=== PATIENT | female | born 1985 | race Caucasian/White ===

== ENCOUNTER 2019-05-04 16:58 | Emergency (ER) | payer BC ==
[2019-05-04 17:37] VITALS: BP 135/91
--- NOTE | 2019-05-04 17:50 | UC ---
UC General HPI - HPI Summary HPI Summary: 33-year-old woman coming in with a chief complaint of bodyaches neck pain headache. For approximately a week patient's been having some body aches and feeling slightly ill. Yesterday she started with neck pain and a headache. The neck pain is worse with any attempted movement of the neck. 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 The headache is circumferential. Denies any runny nose cough chest congestion abdominal pain dysuria diarrhea. She does get bitten by ticks. No known bull's-eye rash. - History of Current Complaint Chief Complaint: UCGeneralIllness Stated Complaint: NECK STIFFNESS Time Seen by Provider: 05/04/19 17:40 Hx Last Menstrual Period: IUD Pain Intensity: 5 - Allergy/Home Medications Allergies/Adverse Reactions: Allergies Allergy/AdvReac Type Severity Reaction Status Date / Time No Known Allergies Allergy Verified 05/04/19 17:38 PMH/Surg Hx/FS Hx/Imm Hx Previously Healthy: Yes - Family History Known Family History: Positive: Non-Contributory - Social History Alcohol Use: Weekly Substance Use Type: None Smoking Status (MU): Never Smoked Tobacco Review of Systems All Other Systems Reviewed And Are Negative: Yes Constitutional: Positive: Fever - 100 AT TRIAGE, Chills, Other - SEE HPI Skin: Positive: Negative Eyes: Positive: Negative ENT: Positive: Negative Respiratory: Positive: Negative Cardiovascular: Positive: Negative Gastrointestinal: Positive: Negative Genitourinary: Positive: Negative Motor: Positive: Other - SEE HPI Neurovascular: Positive: Negative Musculoskeletal: Positive: Myalgia Neurological: Positive: Headache Psychological: Positive: Negative Is Patient Immunocompromised?: No Physical Exam Triage Information Reviewed: Yes Appearance: Well-Nourished, Ill-Appearing - MILD, Pain Distress - MILD WITH ROM OF NECK Vital Signs: Initial Vital Signs Temp 100 F 05/04/19 17:31 Pulse 107 05/04/19 17:31 Resp 18 05/04/19 17:31 BP 135/91 05/04/19 17:31 Pulse Ox 100 05/04/19 17:31 Vital Signs Reviewed: Yes Eye Exam: Normal Eyes: Positive: Conjunctiva Clear ENT: Positive: Pharynx normal, TMs normal Neck: Positive: Nuchal Rigidity, Tenderness @ - MIDLINE Respiratory: Positive: Lungs clear, Normal breath sounds, No respiratory distress Cardiovascular: Positive: Tachycardia Abdomen Description: Negative: CVA Tenderness (R), CVA Tenderness (L) Musculoskeletal: Positive: Strength Intact Neurological: Positive: Alert Psychological: Positive: Age Appropriate Behavior Skin Exam: Normal Course/Dx - Course Course Of Treatment: Due to the possibility of meningitis I recommended further evaluation emergency Department patient declined and is transported be going by POV. - Diagnoses Provider Diagnosis: Neck stiffness, Fever Discharge ED - Sign-Out/Discharge Documenting (check all that apply): Patient Departure All imaging exams completed and their final reports reviewed: No Studies - Discharge Plan Condition: Stable Disposition: HOME-RECOMMEND TO ED Referrals: [facility] [Outside] Additional Instructions: GO DIRECTLY TO THE EMERGENCY DEPARTMENT FOR FURTHER EVALUATION. - Billing Disposition and Condition Condition: STABLE Disposition: Home-Recommend to ED
== END 2019-05-04 17:56 | disposition home health service (06) ==
LOC: UCEAST 16:58
DX: M54.2 Cervicalgia (principal); R50.9 Fever, unspecified
CPT/HCPCS: 99202; G0463

== ENCOUNTER 2019-05-04 18:14 | Emergency (ER) | payer BC ==
[2019-05-04] MEDS ORDERED: Lidocaine 2% EPI 1:200000 MPF* 10 ML VIAL INJ ONE (20:42)
--- NOTE | 2019-05-04 20:46 | ED ---
Neck Pain - HPI Summary HPI Summary: The patient is a 33 y/o F presenting to [facility] with a chief complaint of increasing posterior neck pain in the last week. She reports that when her symptoms began, she had generalized fatigue with myalgia and arthralgia, but then she developed some disorientation with a sensation of unsteady gait but no confusion. The pain worsened in the shoulders and has been persistent in the posterior neck and occipital area, which is aggravated with movement of the neck , causing her to have a light flickering and crunchy description of the pain, as well as a sloshy and pressure-like headache. She additionally c/o a fever ( noted today at Urgent Care) and body tremors without chills. She denies any CP, SOB, cough, abd pain, nausea, vomiting, diarrhea, or back pain. Currently, her symptoms are rated 4/10 in severity. No treatment [employer]. 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 LNMP: IUD. PMHx: none. Nonsmoker, weekly EtOH, no substance use. Medications reviewed. Allergies noted. - History of Current Complaint Chief Complaint: EDNeckComplaint Stated Complaint: FEVER AND STIFF NECK PER PT Time Seen by Provider: 05/04/19 20:31 Hx Obtained From: Patient Hx Last Menstrual Period: IUD Onset/Duration Of Injury/Symptoms: Days - one week Timing: Lasting Days Onset/Duration: Gradual Onset, Still Present Severity Initially: Mild Severity Currently: Moderate Pain Intensity: 4 Pain Scale Used: 0-10 Numeric Location: Discrete At: - posterior neck and occiput Character: Other: - "crunchy" Aggravating Factors: Movement - of neck Alleviating Factors: Position - rest of neck Associated Signs & Symptoms: Positive: Fever, Headache - "sloshy", pressure - Allergies/Home Medications Allergies/Adverse Reactions: Allergies Allergy/AdvReac Type Severity Reaction Status Date / Time No Known Allergies Allergy Verified 05/04/19 18:34 PMH/Surg Hx/FS Hx/Imm Hx Endocrine/Hematology History: Denies: Hx Diabetes Respiratory History: Denies: Hx Asthma Sensory History: Denies: Hx Legally Blind, Hx Deafness Opthamlomology History: Denies: Hx Legally Blind EENT History: Denies: Hx Deafness - Surgical History Surgical History: None Surgery Procedure, Year, and Place: none Infectious Disease History: No Infectious Disease History: Denies: Traveled Outside the [place] in Last 30 Days - Family History Known Family History: Negative: Hypertension, Diabetes - Social History Alcohol Use: Weekly Hx Substance Use: No Substance Use Type: Reports: None Hx Tobacco Use: No Smoking Status (MU): Never Smoked Tobacco Review of Systems Positive: Fever, Fatigue, Other - body tremors. Negative: Chills Positive: Blurred Vision Negative: Chest Pain Negative: Shortness Of Breath Negative: Abdominal Pain, Vomiting, Diarrhea, Nausea Positive: Arthralgia, Myalgia, Other - Positive: bialteral shoulder pain, posterior neck and occipital pain. Negative: back pain. Negative: Rash Neurological: Other - disorientation - unsteady gait Positive: Headache - pressure, "sloshy" All Other Systems Reviewed And Are Negative: Yes Physical Exam - Summary Physical Exam Summary: Appearance: Well-appearing, Well-nourished, lying in bed comfortably Skin: Warm, dry, no obvious rash Eyes: sclera anicteric, no conjunctival pallor ENT: mucous membranes moist, pharynx appears normal Neck: Supple, Pain with ROM with flexion or rotation, Consistent with mild meningismus Respiratory: Clear to auscultation, no signs of respiratory distress Cardiovascular: Normal S1, S2. No murmurs. Normal distal pulses in tibial and radial bilaterally. Abdomen: Soft, nontender, normal active bowel sounds present Musculoskeletal: Normal, Strength/ROM Intact Neurological: A&Ox3, awake and alert, mentation is normal, speech is fluent and appropriate Psychiatric: affect is normal, does not appear anxious or depressed Triage Information Reviewed: Yes Vital Signs On Initial Exam: Initial Vitals Temp Pulse Resp BP Pulse Ox 99.7 F 96 16 159/89 100 05/04/19 18:28 05/04/19 18:28 05/04/19 18:28 05/04/19 18:28 05/04/19 18:28 Vital Signs Reviewed: Yes Procedures - Lumbar Puncture L4-L5 interspace Procedural Sedation: Local anesthetic 2% lido with epi injected while pt in sitting position. Position: Sitting Aseptic Technique: Local Anesthesia Anesthesia Used: 2.0% Lido - with epineprhine Spinal Needle Used: 22 Gauge Lumbar Puncture Note: Puncture performed at the L4-L5 interspace. Pt tolerated procedure well. Diagnostics - Vital Signs Vital Signs Temp Pulse Resp BP Pulse Ox 05/04/19 18:28 99.7 F 96 16 159/89 100 - Laboratory Result Diagrams: 05/04/19 21:21 05/04/19 21:21 Lab Statement: Any lab studies that have been ordered have been reviewed, and results considered in the medical decision making process. - Radiology CXR Radiology Interpretation Completed By: Radiologist Summary of Radiographic Findings: No acute process. ED physician has interpreted this report. Pending official report. Re-Evaluation - Re-Evaluation First Eval Re-Evaluation Time: 22:20 Change: Unchanged Comment: We discussed all results and discharge plan. Neck Course/Dx - Course Course Of Treatment: Pt is a 33 y/o F with cc of increasing pain in the posterior neck and occiput radiating from the shoulders without back pain but accompanied by fever, pain with ROM of neck, sloshy headache, and body tremors , but without any chills, CP, SOB, cough, abd pain, nausea, vomiting, or diarrhea. Upon physical exam, the pt exhibits pain in the neck with ROM including flexion or rotation, which is consistent with mild meningismus. Blood work reveals MCH of 32, INR of 1.11, BUN of 5, glucose of 104, and total bilirubin of 1.30, but is otherwise unremarkable. UA obtained and reveals 2+ protein, trace ketones, and presence of squamous epithelial cells. Lumbar puncture performed (see procedure note). CSF results reveal colorless and clear fluid with 0 WBCs, 54 RBCs, 57 glucose, and 55 total protein. Chest x-ray, per my interpretation, is negative. We discussed all results and plan for discharge home. She understands and agrees with this plan. Dx is viral syndrome. - Diagnoses Provider Diagnoses: Viral syndrome Discharge ED - Sign-Out/Discharge Documenting (check all that apply): Patient Departure - Patient will be discharged home. Patient Received Moderate/Deep Sedation with Procedure: No - Discharge Plan Condition: Good Disposition: HOME Patient Education Materials: Viral Syndrome (ED) Referrals: [facility] [Outside] - 3 Days (if not improving) - Billing Disposition and Condition Condition: GOOD Disposition: Home - Attestation Statements Document Initiated by Scribe: Yes Documenting Scribe: Toyin Wheeler Provider For Whom Scribe is Documenting (Include Credential): MD Meche Gillibjessy Attestation: I, Toyin Wheeler, scribed for Dr. Steven Membreno MD on 05/08/19 at 1849. Scribe Documentation Reviewed: Yes Provider Attestation: The documentation as recorded by the mecheibe, Toyin Wheeler accurately reflects the service I personally performed and the decisions made by me, Dr. Steven Membreno MD Status of Scrshawne Document: Viewed
[2019-05-04] MEDS ORDERED: Lidocaine 2% w/ EPI 1:200,000* 20 ML SDV VIAL INJ ONE (20:50)
[2019-05-04 21:17] LABS: Body Fluid Source Cerebral Spinal
[2019-05-04 21:30] LABS: ABS Lymphocytes 1.8 10^3/ul (1.0-4.8); ABS Monocytes 0.5 10^3/ul (0-0.8); ABS Neutrophils 5.1 10^3/ul (1.5-7.7); Eosinophil % 0.3 %; Hematocrit 42 % (35-47); Hemoglobin 14.6 g/dL (12.0-16.0); Lymphocyte % 24.3 %; Mean Corpuscular HGB Conc 35 g/dL (31-36); Mean Corpuscular Hemoglobin 32 pg (27-31); Mean Corpuscular Volume 91 fL (80-97); Mean Platelet Volume 8.1 fL (7.4-10.4); Nucleated Red Blood Cells % 0.1; Platelet Count 249 10^3/uL (150-450); Red Blood Count 4.64 10^6 /uL (3.70-4.87); Red Cell Distribution Width 12 % (10-15); White Blood Count 7.6 10^3/uL (3.5-10.8)
[2019-05-04 21:31] LABS: CSF Glucose 57 mg/dL (40-70)
[2019-05-04 21:35] LABS: INR 1.11 (0.82-1.09)
[2019-05-04 21:57] LABS: ALT 12 U/L (7-52); AST 18 U/L (13-39); Albumin/Globulin Ratio 1.9 (1-3); Alkaline Phosphatase 51 U/L (34-104); Anion Gap 8 mmol/L (2-11); BUN/Creatinine Ratio 7.4 (8-20); Blood Urea Nitrogen 5 mg/dL (6-24); C Reactive Protein < 1.00 mg/L (<8.01); CO2 Carbon Dioxide 25 mmol/L (22-32); Calcium 9.6 mg/dL (8.6-10.3); Chloride 107 mmol/L (101-111); EGFR African American 120.6 (>60); EGFR Non-African American 99.6 (>60); Globulin 2.6 g/dL (2-4); Glucose 104 mg/dL (70-100); Potassium 3.5 mmol/L (3.5-5.0); Sodium 140 mmol/L (135-145); Total Protein 7.6 g/dL (6.4-8.9)
[2019-05-04 22:31] VITALS: BP 142/86
[2019-05-04 22:33] LABS: Urine Appearance Cloudy; Urine Bacteria Absent (Absent); Urine Bilirubin Negative (Negative); Urine Blood Negative (Negative); Urine Color Yellow; Urine Glucose Negative (Negative); Urine Ketones Trace (Negative); Urine Nitrite Negative (Negative); Urine Protein 2+(100 mg/dL) (Negative); Urine Red Blood Cell Trace(0-2/hpf) (Absent); Urine Specific Gravity 1.012 (1.010-1.030); Urine Squamous Epithelial Cell Present (Absent); Urine Urobilinogen Negative (Negative); Urine White Blood Cell Trace(0-5/hpf) (Absent)
== END 2019-05-04 22:30 | disposition home or self-care (01) ==
LOC: ED 18:14
DX: B34.9 Viral infection, unspecified (principal)
CPT/HCPCS: 36415; 62270; 71046; 80053; 81003; 81015; 82945; 83605; 84157; 85025; 85610; 86140; 86618; 87040; 87086; 89051; 99282